=== PATIENT | male | born 1965 | race Caucasian/White ===

== ENCOUNTER 2019-07-21 07:37 | Day surgery (SDC) | payer OTHER ==
[~2019-07-21] VITALS: Ht 188 cm; Wt 103.4 kg
[2019-07-21] MEDS ORDERED: LIDOCAINE 2% 100 MG/5 ML UJET TP ONE (11:35)
[2019-07-21] MEDS ORDERED: fentaNYL 0.05 MG/ML VIAL ONE (11:35)
[2019-07-21] MEDS ORDERED: fentaNYL 0.05 MG/ML VIAL IVP ONE (13:10)
== END 2019-07-21 13:10 | disposition home or self-care (01) ==
LOC: MOR 07:37 → MMU 07:39 → MOR 13:10
PROVIDERS: ATTEND Internal Medicine Gastroenterology
DX: R19.5 Other fecal abnormalities (principal); K63.5 Polyp of colon; E66.3 Overweight; Z88.0 Allergy status to penicillin; Z98.890 Other specified postprocedural states; Z87.891 Personal history of nicotine dependence
CPT/HCPCS: 45381; 45385; 88305; J3010

== ENCOUNTER 2024-03-17 07:36 | Day surgery (SDC) | payer OTHER ==
[~2024-03-17] VITALS: Ht 188 cm; Wt 104.3 kg
[2024-03-17] MEDS ORDERED: fentaNYL citrate 0.05 MG/ML VIAL ONE (08:35)
[2024-03-17] MEDS: fentaNYL citrate 0.05 MG/ML VIAL IVP ONE (10:05)
[2024-03-17] MEDS: LIDOCAINE 2% 100 MG/5 ML UJET TP ONE (10:14)
== END 2024-03-17 11:12 | disposition home or self-care (01) ==
LOC: MDS 07:36 → MMU 07:37 → MDS 11:12
PROVIDERS: ATTEND Internal Medicine Gastroenterology
DX: K62.5 Hemorrhage of anus and rectum (principal); I10 Essential (primary) hypertension; Z86.010 Personal history of colon polyps; Z88.0 Allergy status to penicillin; Z79.899 Other long term (current) drug therapy; Z98.890 Other specified postprocedural states
CPT/HCPCS: 45378; J3010